=== PATIENT | female | born 1940 | race Caucasian/White ===

== ENCOUNTER → 2019-03-23 08:51 | Outpatient (CLI) | payer MEDICARE, OTHER ==
--- NOTE | 2019-03-30 10:41 | ST ---
PATIENT:AKIL KEARNS MEDICAL RECORD: [id number] SEX: F LOCATION:[facility] ORDER #: ADMISSION DATE: 03/23/19 AGE OF PATIENT: 78 REFERRING PHYSICIAN: INTERPRETING PHYSICIAN: LONI SANCHEZ MD DATE OF SERVICE: 03/23/2019 INDICATION: Angina, shortness of breath, hypertension, and hyperlipidemia. She was exercised on standard Mikhail protocol for 5 minutes achieving 100% maximum target heart rate response with 33 mCi of sestamibi injected at peak stress, 11 mCi used previously for rest images. FINDINGS: Gated SPECT reveals preserved ejection fraction at 63% with good wall motion and thickening and brightening throughout all segments. SPECT imaging Cardiolite was used as myocardial fusion agent. There is homogeneous uptake throughout all segments at rest and stress with no evidence of inducible ischemia or previous infarction. OVERALL IMPRESSION: 1. This is a normal nuclear stress test with no evidence of inducible ischemia or previous infarction. 2. Gated SPECT reveals a preserved ejection fraction at 63%. In this patient with ongoing symptomatology, the current scan does not suggest the presence of hemodynamically significant coronary artery disease. Evaluate noncardiac etiology of chest pain. 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
== END | disposition home or self-care (01) ==
LOC: D.HCCARDIO 08:51
PROVIDERS: ATTEND Internal Medicine Interventional Cardiology
DX: R00.2 Palpitations (principal)